=== PATIENT | male | born 1940 | race Caucasian/White ===

== ENCOUNTER 2023-11-25 10:06 | Outpatient (CLI) | payer MEDICARE, OTHER ==
[~2023-11-25 10:06] MED LIST: AMIO200T72 PO; ASPI-1265 PO; ATOR10TA70 PO; CLOP75TA80 PO; COR3.125T PO; FURO40TA4 PO; LEVO500T2 PO; LISI-222 PO; POTA-208 PO; iohexol 350MG/ML 100ml bottle IV ONE
[2023-11-25 11:53] LABS: ALBUMIN 3.6 G/DL (3.4-5.0); ANION GAP 9 (8-16); BLOOD UREA NITROGEN 17 MG/DL (7-18); BUN/CREATININE RATIO 13.6 (10.0-20.0); CALCIUM 9.4 MG/DL (8.5-10.1); CHLORIDE 105 MMOL/L (99-107); CREATININE 1.25 MG/DL (0.60-1.10); GLUCOSE 104 MG/DL (70-104); POTASSIUM 4.1 MMOL/L (3.5-5.1); SODIUM 138 MMOL/L (135-145); TOTAL CARBON DIOXIDE 24.2 MMOL/L (24-32); eGFR 55 ML/MIN
== END 2023-11-25 23:59 | disposition home or self-care (01) ==
LOC: RAD 10:06
PROVIDERS: ATTEND Internal Medicine Interventional Cardiology
DX: I65.23 Occlusion and stenosis of bilateral carotid arteries (principal)
CPT/HCPCS: 36415; 70498; 80048; Q9967